=== PATIENT | male | born 2000 | race Caucasian/White ===

== ENCOUNTER 2020-06-27 11:45 | Outpatient (REF) | payer MEDICAID, SELFPAY | END 2020-06-27 11:46 | disposition home or self-care (01) | LOC: HO.LAB 11:45 | PROVIDERS: PCP Pediatrics; Visit Provider Internal Medicine | DX: Z20.828 Contact with and (suspected) exposure to other viral communicable diseases (principal) | CPT/HCPCS: C9803; U0003 ==

== ENCOUNTER 2020-07-09 15:29 | Outpatient (REF) | payer MEDICAID, SELFPAY | END 2020-07-09 15:30 | disposition home or self-care (01) | LOC: HO.LAB 15:29 | PROVIDERS: PCP Pediatrics; Visit Provider Internal Medicine | DX: Z20.828 Contact with and (suspected) exposure to other viral communicable diseases (principal) | CPT/HCPCS: C9803; U0003 ==

== ENCOUNTER 2022-03-10 22:45 | Emergency (ER) | payer MEDICAID, SELFPAY ==
[2022-03-10 22:56] VITALS: BP 136/76; PULSE 69; RESP 16; TEMP 36.3; O2SAT 97; BMI 32.7
--- NOTE | 2022-03-10 23:13 | ED.EAR ---
HPI - Ear Problem General Chief complaint: Ear Problems Stated complaint: ear pain Time Seen by Provider: 03/10/22 23:08 Source: patient Mode of arrival: ambulatory Limitations: no limitations History of Present Illness HPI Narrative: 21-year-old male presents to the ER with right-sided ear pain and hearing loss for the last 2 or 3 days. He reports significant pain deep inside of his right ear with muffled sounds. He has some intermittent ringing in his ear as well. He has not she swam in a few weeks because he has been really busy and working a lot. He denies any drainage from the ear. He has no complaints on the left side. He took a hot shower tonight that alleviated his symptoms briefly. He reports pain when he tries to lay on his right side. MD Complaint: ear pain and decreased hearing Location: right ear Duration: constant Severity: severe Relieving factors: nothing Exacerbating factors: chewing, position of head and palpation Discharge from ear: no Associated symptoms ear: decreased hearing, headache, external ear tenderness and ear swelling Treatment prior to arrival: none Related Data Previous Rx's Medication Instructions Recorded amoxicillin 875 mg-potassium 1 tab PO BID #14 tabs 03/10/22 clavulanate 125 mg tablet ciprofloxacin 0.3 %-dexamethasone 4 drp otic (ears) BID 7 days #7.5 03/10/22 0.1 % ear drops,suspension mL (Ciprodex) ibuprofen 600 mg tablet 600 mg PO Q8H PRN fever or pain 03/10/22 #14 tabs Allergies Allergy/AdvReac Type Severity Reaction Status Date / Time animal dander [PET DANDER] Allergy Unknown HIVES, RASH Unverified 04/11/20 17:00 SEASONAL ALLERGIES Allergy Mild UNKNOWN Uncoded 04/11/20 17:00 Review of Systems Review of Systems: Constitutional: No Fever, No Chills ENT/Mouth: No sore throat, No Rhinorrhea, No Swallowing Difficulty, +Otalgia, +Hearing loss Eyes: No Eye Pain, No Swelling, No Redness Cardiovascular: No Chest Pain, No SOB Respiratory: No Cough, No Sputuma Gastrointestinal: No Nausea, No Vomiting Skin: No Skin Lesions, No rash Neuro: No Weakness, No Numbness, No Dizziness, + Headache Psych: + Anxiety/Panic, No Depression Heme/Lymph: No Bruising, No Lymphadenopathy PMFSH Social History Social History Advance Directives: No Physical Exam Vital Signs: Vital Signs: Last Vital Signs Temp 97.3 F 03/10/22 22:56 Pulse 69 03/10/22 22:56 Resp 16 03/10/22 22:56 BP 136/76 03/10/22 22:56 Pulse Ox 97 03/10/22 22:56 O2 Del Method 03/10/22 22:56 BMI result Body Mass Index 32.7 Appearance: Alert. Oriented X3. No acute distress. HEENT: normal external inspection. normal left EAC & TM. Pain with pull of the right Pinna. Right EAC with moderate swelling and tenderness, small amount of yellow discharge. partially visualized TM with erythema and bulging. CVS: Normal heart rate and rhythm. Pulses normal. Respiratory: No respiratory distress. Skin: Skin warm and dry. Normal skin color. Normal skin turgor. No rashes. Extremities: normal inspection x4, normal ROM Neuro: Oriented X 3. No motor deficit. No sensory deficit. Course Course Course Narrative: 21-year-old male presents to the ER with right ear pain and decreased hearing for the last 3 days. His examination is consistent with acute otitis externa and otitis media. He will require treatment with both topical and oral antibiotics. Prescription sent to 24 hours [facility] and to copy. Patient will go pick then up now. He is stable for discharge home. Discharge Plan Discharge Clinical Impression: Otitis externa, Otitis media Patient Disposition: Home, Self-Care Instructions: Otitis Externa (ED), Ear Infection (ED) Additional Instructions: Starting in the prescribed antibiotics as directed, complete the entire course. Use the prescribed antibiotic drops as directed. Do not get water in your ear. When you shower put a cotton ball in your ear. If you develop new or worsening symptoms call 911 or come back to the ER for further evaluation. Prescriptions: New amoxicillin-pot clavulanate 875-125 mg tablet 1 tab PO BID Qty: 14 0RF ciprofloxacin-dexamethasone [Ciprodex] 0.3-0.1 % drops,suspension 4 drp otic (ears) BID 7 Days Qty: 7.5 0RF ibuprofen 600 mg tablet 600 mg PO Q8H PRN (Reason: fever or pain) Qty: 14 0RF
== END 2022-03-10 23:36 | disposition home or self-care (01) ==
PROVIDERS: Emergency Provider Internal Medicine
DX: H60.91 Unspecified otitis externa, right ear (principal); H66.91 Otitis media, unspecified, right ear; R51.9 Headache, unspecified; Z79.899 Other long term (current) drug therapy
CPT/HCPCS: 99283; 99284

== ENCOUNTER 2023-07-05 20:21 | Emergency (ER) | payer MEDICAID, SELFPAY ==
[2023-07-05 21:32] VITALS: BP 133/79; PULSE 79; RESP 18; TEMP 37.3; O2SAT 99; BMI 34.0
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
[2023-07-06] MEDS: Diphth,Pertus(ACell),Tet Adult 0.5 ML SYRINGE IM (00:29)
--- NOTE | 2023-07-06 00:35 | PC.NURSE ---
This RN medicated and discharge pt for RN Eun, reviewed discharge instructions with pt. pt verbalized understanding.
== END 2023-07-06 00:36 | disposition home or self-care (01) ==
PROVIDERS: Emergency Provider Emergency Medicine
DX: S81.812A Laceration without foreign body, left lower leg, initial encounter (principal); W27.8XXA Contact with other nonpowered hand tool, initial encounter; Y93.E6 Activity, residential relocation; Y92.9 Unspecified place or not applicable; Y99.9 Unspecified external cause status
CPT/HCPCS: 12001; 90471; 90715; 99282; 99284

== ENCOUNTER 2024-02-27 21:00 | Emergency (ER) | payer MEDICAID, SELFPAY ==
--- NOTE | ~2024-02-27 | XR_ITS ---
EXAMINATION: XR KNEE, RIGHT CLINICAL INFORMATION: Pain COMPARISON: None available. TECHNIQUE: Four views of the right knee. FINDINGS: Osseous alignment is anatomic. Joint spaces are maintained. No acute fracture is seen. No significant effusion. XR/XR knee RT 3V IMPRESSION: No acute findings identified.
[2024-02-27 21:06] VITALS: BP 128/78; PULSE 66; RESP 18; TEMP 36.8; O2SAT 97; BMI 36.7
--- NOTE | 2024-02-27 21:50 | ED.GENADULT ---
HPI - General Adult General Chief complaint: Extremity Injury, Lower Stated complaint: R knee pain/inj Time Seen by Provider: 02/27/24 21:49 Source: patient Mode of arrival: ambulatory Limitations: no limitations History of Present Illness ED Provider: Cammy Goode PA-C HPI narrative: Patient is a 23 year old assigned male at with no reported medical history presenting to the emergency department today with right upper leg pain. Patient states that on Wednesday he was doing leg extensions and squats, felt fine, but on Wednesday he began to have right upper leg pain. Patient states that the pain is right above his knee cap and worse with flexion of his right knee. Patient denies any dizziness, lightheadedness, abdominal pain, nausea, vomiting, fever, chills, blurry vision, double vision, loss of vision, chest pain, difficulty breathing, shortness of breath, back pain, night sweats, pain with urination, increased urinary frequency, increased urinary urgency, blood in his urine or stool, syncope or a near syncopal episode, bowel incontinence, bladder incontinence, or any other complaints at this time. Onset (ago): day(s) (1) Location: right and lower extremity Severity: moderate Severity scale (1-10): 6 Quality: aching Pain Consistency: constant Relieving factors: immobilization Exacerbating factors: movement Associated symptoms: denies other symptoms Treatments prior to arrival: none Related Data Previous Rx's ?Medication ?Instructions ?Recorded amoxicillin 875 mg-potassium 1 tab PO BID #14 tabs 03/10/22 clavulanate 125 mg tablet ciprofloxacin 0.3 %-dexamethasone 4 drp otic (ears) BID 7 days #7.5 03/10/22 0.1 % ear drops,suspension mL (Ciprodex) ibuprofen 600 mg tablet 600 mg PO Q8H PRN fever or pain 03/10/22 #14 tabs Allergies Allergy/AdvReac Type Severity Reaction Status Date / Time animal dander [PET DANDER] Allergy Unknown HIVES, RASH Verified 02/27/24 21:12 seafood Allergy Hives Verified 02/27/24 21:12 SEASONAL ALLERGIES Allergy Mild UNKNOWN Uncoded 07/05/23 21:32 Review of Systems Constitutional: Constitutional: Reports no additional constitutional complaints, Denies chills, Denies fever(s) and Denies night sweats Eyes: Eyes: Reports no additional eye complaints, Denies blurry vision, Denies change in vision, Denies diplopia, Denies eye discharge, Denies loss of vision and Denies eye pain ENT: Denies dizziness Cardiovascular: Cardiovascular: Reports no additional cardiovascular complaints, Denies chest pain, Denies lightheadedness, Denies Loss of Consciousness and Denies dyspnea Respiratory: Respiratory: Reports no additional respiratory complaints and Denies dyspnea Gastrointestinal: Gastrointestinal: Reports no additional gastrointestinal complaints, Denies abdominal pain, Denies melena, Denies hematochezia, Denies change in bowel habits and Denies change in stool character Genitourinary: Genitourinary: Reports no additional male genitourinary complaints, Denies hematuria, Denies oliguria, Denies difficulty urinating, Denies dysuria, Denies urinary frequency, Denies urinary hesitancy, Denies urinary incontinence and Denies urinary urgency Musculoskeletal: Musculoskeletal: Reports no additional musculoskeletal complaints, Denies numbness and Denies tingling Comments: right upper leg pain Neurologic: Denies dizziness, Denies loss of vision, Denies numbness and Denies tingling Psychiatric: Psychiatric: Reports no additional psychiatric complaints Endocrine: Endocrine: Reports no additional endocrine complaints Hematologic/Lymphatic: Hematologic/Lymphatic: Reports no additional hematologic/lymphatic complaints Allergic/Immunologic: Allergic/Immunologic: Reports no additional allergic/immunologic complaints PMFSH Past Medical History Attestation statement: The following information was validated with the patient. Source: old records reviewed and nursing notes reviewed Social History Social History Advance Directives: No Advance Directives Information Provided: No Do you have a plan to hurt others: No Plan Physical Exam ED Vital Signs: Vital Signs - 24 hr 02/27/24 21:06 02/27/24 22:00 02/27/24 23:37 Temperature 98.3 F 98.3 F 98.5 F Pulse Rate 66 59 80 Respiratory Rate 18 17 16 Blood Pressure 128/78 129/73 121/71 Pulse Oximetry 97 99 95 Oxygen Delivery Method Room Air Room Air Room Air BMI result Body Mass Index 36.7 Const General: cooperative, no acute distress, alert and awake Nutritional Appearance: well nourished Orientation/consciousness: patient oriented x3 Limitations: no limitations HENMT Head: Yes normal to inspection and Yes atraumatic Ears: hearing grossly normal bilaterally and external ears normal General nose exam: Normal external nose present, no nasal discharge noted and no epistaxis Face and sinus: Yes normal facial exam, No abrasion and No laceration Mouth: Normal oral and palatal mucosa present, no drooling and no muffled voice Eyes General: appearance normal, both eyes and all related structures Periorbital: periorbital findings normal Eyelids: Yes eyelids normal Conjunctivae: conjunctivae normal Pupils: Equal, round and reactive pupils present EOM: EOMs intact bilaterally Neck Neck: Yes normal visual inspection, Yes full ROM and Yes no lymphadenopathy Chest Chest palpation & inspection: normal inspection of the chest Resp Effort & Inspection: normal respiratory effort and able to speak in complete sentences GI Inspection: Yes normal to inspection Neuro General: patient oriented x3 and moves all extremities Cranial nerves: Yes Equal, round and reactive pupils present Cognition (Neuro): normal cognition Extrem Other: pain with palpation superior of the right knee patient able to extend right knee but has significant pain with flexion of the right knee - in the quad General: Yes normal to inspection and Yes capillary refill normal Psych Appearance: grossly normal Mental Status: mental status grossly normal Affect: normal affect Attitude: cooperative Thought process: Normal thought process present Thought content: Normal thought content present Insight: Good insight present (Psych) Medications Administered Discontinued Medications Generic Name Dose Route Start Last Admin Trade Name Dot PRN Reason Stop Dose Admin Ketorolac Tromethamine 15 mg 02/27/24 23:50 02/27/24 23:55 Ketorolac Tromethamine 15 Mg/Ml Vial IM 02/27/24 23:51 15 mg ONCE ONE Administration Procedures Orthopedic Splinting/Casting Injury #1: Side: right Lower Extremity Injury Location: upper leg Lower Extremity Immobilizer: knee immobilizer Other Orthopedic Equipment: crutches Medical Decision Making Medical Decision Making MDM Narrative: Patient is a 23 year old assigned male at with no reported medical history presenting to the emergency department today with right upper leg pain. Patient's physical exam was as noted in the physical exam portion of this note and most concerning for a right quad injury. Patient's right knee x-ray showed no acute process. I explained my physical exam findings as well as all test results to the patient. I answered all questions asked by the patient. Patient's right knee was placed in a knee immobilizer, without incident. Patient's PMS was intact prior to and after immobilizer placement. Patient's PMS was intact prior to and after immobilizer placement. Patient was given crutches with crutch instructions. I stressed the importance of the patient taking his medication as directed (either prescribed or as the over the counter packaging recommends). I stressed the importance of the patient following up with his primary care provider and an orthopedic provider. I stressed the importance of the patient returning to the emergency department immediately if his symptoms were to worsen or if he were to develop any dizziness, shortness of breath, difficulty breathing, chest pain, blurry vision, loss of vision, nausea, vomiting, abdominal pain, fever, chills, back pain, or any other complaints. Patient verbalized agreement and understanding with this treatment plan and discharge. Differential Diagnosis Differential Diagnoses: The differential diagnosis associated with the presentation includes Quad injury Quad strain Quad sprain Quad tear Admission/Observation Consideration of admission/observation: Escalation of care including admission/observation considered Patient would have been admitted to the hospital had his work up had any findings where hospital admission was appropriate and his clinical presentation warranted hospital admission. Independent Interpretation I performed an independent interpretation of an: Plain X-Ray Interpretation: My interpretation is in agreement with the radiologist's impression of this imaging study. EXAMINATION: XR KNEE, RIGHT CLINICAL INFORMATION: Pain COMPARISON: None available. TECHNIQUE: Four views of the right knee. FINDINGS: Osseous alignment is anatomic. Joint spaces are maintained. No acute fracture is seen. No significant effusion. XR/XR knee RT 3V IMPRESSION: No acute findings identified. Dictated By: Warren Cagle MD Signed By: Electronically signed by Warren Cagle MD 02/27/24 6068 Radiology Impression Discussion of test interpretation with radiology: I have reviewed the radiologist's reading. Discharge Plan Discharge Clinical Impression: Injury of quadriceps muscle Patient Disposition: Home, Self-Care Instructions: Knee Immobilizer (ED) Additional Instructions: Your x-ray showed no frank process. Your exam is concerning for a right quadriceps injury. Follow up with your primary care provider and an orthopedic provider. Use your knee immobilizer and remain non weight bearing until orthopedics clears you. Return to the emergency department immediately if your symptoms worsen or if you develop any dizziness, shortness of breath, difficulty breathing, chest pain, blurry vision, loss of vision, nausea, vomiting, abdominal pain, fever, chills, back pain, or any other complaints. Prescriptions: No Action amoxicillin-pot clavulanate 875-125 mg tablet 1 tab PO BID Qty: 14 0RF ciprofloxacin-dexamethasone [Ciprodex] 0.3-0.1 % drops,suspension 4 drp otic (ears) BID 7 Days Qty: 7.5 0RF ibuprofen 600 mg tablet 600 mg PO Q8H PRN (Reason: fever or pain) Qty: 14 0RF Referrals: [facility] Family Medicine [Provider Group] (Call to establish and follow up with a primary care provider. If you already have a primary care provider, please follow up with them.) [facility] Primary CarePankaj [Provider Group] [facility] Primary CareJavier [Provider Group] [facility] [Provider Group] (Call to establish and follow up with an orthopedic provider. ) Stand Alone Forms: Work/School Release Print Language: Australian
[2024-02-27 22:00] VITALS: BP 129/73; PULSE 59; RESP 17; TEMP 36.8; O2SAT 99
--- NOTE | 2024-02-27 22:16 | MHC.EDTECH ---
Addendum entered by Sarah Gomez 02/27/24 22:18: Spoke with RN Reid and relayed information regarding medications and that an ice pack was applied. Original Note: This tech entered room to obtain updated vital signs on patient. While talking with patient, he disclosed that his knee pain was returning and that around 1900 he took Motrin and proshred - which he states is a workout supplement for pain. This tech also supplied patient with a cold pack and towel and placed cold pack above patients right knee.
[2024-02-27 23:37] VITALS: BP 121/71; PULSE 80; RESP 16; TEMP 36.9; O2SAT 95
[2024-02-27] MEDS: Ketorolac Tromethamine 15 MG/ML VIAL IM (23:55)
[2024-02-28 00:36] VITALS: BP 121/71; PULSE 80; RESP 16; TEMP 36.9; O2SAT 95
== END 2024-02-28 00:38 | disposition home or self-care (01) ==
PROVIDERS: Emergency Provider Emergency Medicine Emergency Medical Services
DX: S86.811A Strain of other muscle(s) and tendon(s) at lower leg level, right leg, initial encounter (principal); M25.561 Pain in right knee; X50.9XXA Other and unspecified overexertion or strenuous movements or postures, initial encounter; Y93.B9 Activity, other involving muscle strengthening exercises; Y92.098 Other place in other non-institutional residence as the place of occurrence of the external cause; Y99.8 Other external cause status
CPT/HCPCS: 73562; 96372; 99283; 99284; J1885

== ENCOUNTER 2024-03-03 08:54 | Outpatient (AMB) | payer MEDICAID, SELFPAY ==
--- NOTE | 2024-03-03 09:06 | A.OFFVIS_ITS ---
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 Patient expresses he was working out on 02/25/24 doing leg extension exercises and quad extensions and felt fine after but the following day he began to have pain on the upper aspect of his right leg above his knee cap that worsens with flexion. On Wednesday02/27/24 he expresses he had excruciating pain which led him to go to the ED. He states his symptoms have since improved but his knee feels funny when he flexes it, he feels his knee is going to buckle. He was seen at [facility] ED on 02/27/24 where x-rays were done and advised him to use his knee immobilizer and remain non weight bearing until follow up with orthopedics. 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 The patient reports that, on this date, he was attempting to engage his right quadriceps to show case muscle growth for a workout partner, when he felt a small clicking sensation. The mikey thompson reports that, over the next day or so, he began to experience significant discomfort in the suprapatellar region of the right knee, as well as in the right thigh. He also reports that flexion of the right knee was very painful, to the point where active flexion was extremely difficult. The patient reports that, while in the ED, he was given a shot of Toradol, which helped significantly. Today, the patient reports that he is feeling better, but does still notice some discomfort in the suprapatellar region of the right knee and in the right thigh, along with swelling of the right thigh that only occurs in the morning, but improves quickly as he goes about his day. The patient reports that his range of motion has improved significantly, and he is now able to flex to 90 degrees without any difficulty. He also reports no difficulty with extension of the right knee. Of note, the patient also reports a ?strange sensation? that occasionally occurs in the right thigh, moving from the suprapatellar region of the knee up into the proximal thigh. The patient expresses concern about his ACL, as his family has been telling him that he may have torn it. 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 Pain: Patient reports no tenderness to palpation about the right knee or quad Patient reports no pain with range of motion testing ROM: Patient is able to extend the right knee fully without difficulty Patient is able to flex the right knee to 120 degrees without difficulty Skin: No lacerations or abrasions. General: No ecchymosis, erythema, or evidence of infection. No visible or palpable deformity of the quadriceps tendon Negative Graciela's Negative varus and valgus testing Negative anterior drawer Distal sensation intact Capillary refill brisk Psych: Appears grossly normal Affect normal Attitude cooperative Psych Appearance: grossly normal Mental Status: mental status grossly normal Results Reviewed Results Reviewed: X-rays obtained in the emergency department on 02/27/2024 and independently reviewed by me, Akhil Lobo PA-C, demonstrate no fracture or acute bony abnormality. Assessment & Plan Assessment & Plan (1) Strain of right quadriceps tendon: Code(s): S76.111A - Strain of right quadriceps muscle, fascia and tendon, initial encounter Category: Medical Plan 1. Right quadriceps tendon strain Date of injury 02/25/2024 Low index of suspicion for right quad tendon tear, as patient is able to extend right knee fully without difficulty and there is no palpable deformity Patient is informed that he has a negative anterior drawer test, as well as a history that is not suggestive of ACL injury, therefore the index of suspicion for an ACL tear is also very low Patient is told that he no longer has to wear a knee immobilizer Patient is informed that he likely sprained or strained the right quadriceps tendon, and this injury and recovery course was explained to the patient Patient is referred to physical therapy for range of motion, strengthening and stabilization of the right knee 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 with any acute concerns Orders: Orders PT Evaluation and Treatment Today S76.111A - Strain of right quadriceps muscle, fascia and tendon, initial encounter Medications: Discontinued amoxicillin-pot clavulanate 875-125 mg Discontinued Reason: Patient no longer taking 1 tab PO BID 14 tabs 0RF ciprofloxacin-dexamethasone 0.3-0.1 % (Ciprodex) Discontinued Reason: Patient no longer taking 4 drps otic (ears) BID 7 days 7.5 mL 0RF Coding Level of Care Code New Pt Level 3 (87498) Diagnoses Strain of right quadriceps tendon S76.111A
[2024-03-03 09:07] VITALS: BMI 36.2
== END 2024-03-03 09:30 | disposition home or self-care (01) ==
DX: S76.111D Strain of right quadriceps muscle, fascia and tendon, subsequent encounter (principal)
CPT/HCPCS: 99203

== ENCOUNTER → 2024-03-03 08:54 | Outpatient (BNVA) | payer MEDICAID, SELFPAY | DX: S76.111A Strain of right quadriceps muscle, fascia and tendon, initial encounter (principal); X58.XXXA Exposure to other specified factors, initial encounter; Y93.89 Activity, other specified; Y92.89 Other specified places as the place of occurrence of the external cause; Y99.9 Unspecified external cause status | CPT/HCPCS: 99212 ==

== ENCOUNTER 2024-08-14 01:17 | Emergency (ER) | payer MEDICAID, SELFPAY ==
[2024-08-14 01:21] VITALS: BP 122/84; PULSE 109; O2SAT 97
[2024-08-14 01:35] VITALS: BP 145/72; PULSE 98; RESP 16; TEMP 36.8; O2SAT 98; BMI 36.3
[2024-08-14 02:00] LABS: Basophils Percent Auto 0.1 % (0-2); Eosinophils Percent Auto 0.1 % (0-4); Hematocrit 47.4 % (42.0-52.0); Hemoglobin 16.3 g/dl (14.0-18.0); Imm Gran Abs Auto 0.04 X10*3/uL (0.00-0.03); Imm Gran Pct Auto 0.3 % (0.0-0.4); Lymphocytes Absolute Auto 0.4 X10*3/uL (1.2-4.9); Lymphocytes Percent Auto 2.5 % (20-40); MANUAL DIFF FLAG SCAN; Mean Corpuscular HGB Conc 34.4 g/dl (31.0-36.0); Mean Corpuscular Hemoglobin 30.5 pg (27.0-33.0); Mean Corpuscular Volume 88.8 fL (80.0-98.0); Mean Platelet Volume 9.3 fL (9.4-12.4); Monocytes Absolute Auto 0.4 X10*3/uL (0.1-1.2); Monocytes Percent Auto 2.8 % (2-11); Neutrophils Absolute Auto 13.3 x10*3/uL (2.0-8.3); Neutrophils Percent Auto 94.2 % (45-73); Platelet Count 280 X10*3/uL (160-400); Red Blood Count 5.34 X10*6/uL (4.60-5.80); Red Cell Distribution Width 12.9 % (11.0-16.0); SCAN SMEAR FLAG 1; White Blood Count 14.1 X10*3/uL (4.8-10.8)
[2024-08-14] MEDS: 0.9 % Sodium Chloride 1,000 ML 999 ML IVCONT (02:13)
[2024-08-14] MEDS: Loperamide HCl 2 MG CAPSULE 4 MG PO (02:14)
[2024-08-14] MEDS: ondansetron HCL 4 MG/2 ML VIAL IVPUSH (02:14)
--- NOTE | 2024-08-14 02:21 | PC.NURSE ---
Iv placed, medicated per sep, pt is resting on stretcher at his time.
[2024-08-14 02:22] LABS: Alanine Aminotransferase 35 U/L (0-40); Albumin Level 4.7 g/dL (3.5-5.0); Alkaline Phosphatase 84 U/L (39-117); Anion Gap 16 (12-20); Aspartate Amino Transferase 33 U/L (5-37); Bilirubin Direct 0.2 mg/dL (0.0-0.5); Bilirubin Total 0.7 mg/dL (0.0-1.0); Blood Urea Nitrogen 14 mg/dL (9-16); Calcium 10.1 mg/dL (8.4-10.2); Carbon Dioxide 23 mmol/L (22-29); Chloride 107 mmol/L (96-108); Creatinine Clr Calc Pharmacy 118.2; Estimated Glomerular Filt Rate > 60; Glucose Random 136 mg/dL (60-115); Lipase 39 U/L (8-78); Potassium 4.6 mmol/L (3.3-5.1); Sodium 141 mmol/L (135-145); Total Protein 8.3 g/dL (6.5-8.0)
--- NOTE | 2024-08-14 02:23 | ED_ITS ---
HPI - Nausea/Vomiting/Diarrhea General Chief complaint: Nausea/Vomiting/Diarrhea Stated complaint: n/v/d x6 hrs, ab pain and dehydrated Time Seen by Provider: 08/14/24 01:23 Source: patient Mode of arrival: ambulatory Limitations: no limitations History of Present Illness ED Provider: Dr. Nazia Lui HPI Narrative: Patient comes to the emergency room complaining of nausea and vomiting for 6 hours, no diarrhea, mild abdominal cramping. Patient denies fever or chills. Patient denies any other symptoms Related Data Previous Rx's ?Medication ?Instructions ?Recorded ibuprofen 600 mg tablet 600 mg PO Q8H PRN fever or pain 03/10/22 #14 tabs ondansetron 4 mg disintegrating 4 mg PO Q8H PRN nausea and 08/14/24 tablet vomiting #14 tabs Allergies Allergy/AdvReac Type Severity Reaction Status Date / Time animal dander [PET DANDER] Allergy Unknown HIVES, RASH Verified 08/14/24 01:37 seafood Allergy Hives Verified 08/14/24 01:37 SEASONAL ALLERGIES Allergy Mild UNKNOWN Uncoded 03/03/24 09:07 Review of Systems 2 Review of Systems: Constitutional : No Weight loss, No Fever, No Chills, No Night Sweats, No Fatigue, No Malaise ENT/Mouth : No Hearing loss, No Ear Pain, No Nasal Congestion, No Sinus Pain, No Hoarseness, No sore throat, No Rhinorrhea, No Swallowing Difficulty Eyes: No Eye Pain, No Swelling, No Redness, No Foreign Body, No Discharge, No Vision Changes Cardiovascular : No Chest Pain, No SOB, No Dyspnea on Exertion, No Orthopnea, No Edema, No Palpitations Respiratory : No Cough, No Sputum, No Wheezing, No Smoke Exposure, No Dyspnea Gastrointestinal : Complaining of nausea and vomiting, No Diarrhea, No Constipation, No abdominal Pain, No Hematochezia, No Melena Genitourinary : no irregular bleeding, No Dysuria, No Urinary Frequency, No Hematuria, No Urinary Incontinence, No Urgency, No Flank Pain, No Urinary Flow Changes, No Hesitancy Musculoskeletal : No joint pain, No Myalgias, No Joint Swelling Skin : No Skin Lesions, No rash Neuro : No Weakness, No Numbness, No Paresthesias, No Loss of Consciousness, No Dizziness, No Headache Psych : No Anxiety/Panic, No Depression, No SI/HI/AH/VH, No Social Issues, Heme/Lymph: No Bruising, No Bleeding,No Lymphadenopathy Endocrine : No Polyuria, No Polydipsia, No Temperature Intolerance [facility] Social History Social History Alcohol intake: former Patient Tobacco Use Status: Never used Tobacco Advance Directives: No Advance Directives Information Provided: Yes Do you have a plan to hurt others: No Plan Current occupational status: employed 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 Oriented X3. No acute distress. Eyes: Pupils equal, round and reactive to light. ENT: Pharynx normal. Neck: Normal inspection. Neck supple. No lymph nodes noted. No crepitus CVS: Normal heart rate and rhythm. Pulses normal. Normal S1 and S2 Respiratory: No respiratory distress. Breath sounds normal. No Wheezing. No rales Abdomen: Soft and nontender. No rigidity. No distention. Skin: Skin warm and dry. Normal skin color. Normal skin turgor. Extremities: No lower extremity edema. No Lacerations. No Rash Neuro: Oriented X 3. No motor deficit. No sensory deficit. Moving all extremities. No slurred speech. CN 2 through 12 grossly intact Psych: calm, cooperative, normal affect Course Course Course Narrative: Patient receiving IV fluids, Zofran. Abdominal exam is reassuring, no abdominal pain on palpation. Medications Administered Generic Name Dose Route Start Last Admin Trade Name Freq PRN Reason Stop Dose Admin Sodium Chloride 1,000 mls @ 999 mls/hr 08/14/24 01:33 08/14/24 02:13 Ns IVCONT 08/14/24 02:33 999 mls/hr .Q1H1M ONE Administration Discontinued Medications Generic Name Dose Route Start Last Admin Trade Name Freq PRN Reason Stop Dose Admin Loperamide HCl 4 mg 08/14/24 01:33 08/14/24 02:14 Loperamide Hcl 2 Mg Capsule PO 08/14/24 01:34 4 mg ONCE ONE Administration Ondansetron HCl 4 mg 08/14/24 01:33 08/14/24 02:14 Ondansetron Hcl 4 Mg/2 Ml Vial IVPUSH 08/14/24 01:34 4 mg ONCE ONE Administration Medical Decision Making Medical Decision Making [facility] Narrative: My interpretation of labs: Patient's white blood cell count 14, likely reactive leukocytosis. Normal chemistry, LFTs and lipase. Physical exam reassuring CT scan was considered but patient's physical exam was relatively normal including abdominal physical exam Differential Diagnosis Differential Diagnoses: The differential diagnosis associated with the presentation includes (Viral illness, gastritis, gastroenteritis) Lab Data [facility] Lab Attestation statement: I reviewed the patient's lab results. 08/14/24 01:53 08/14/24 01:53 Labs: Lab Results 08/14/24 Range/Units 01:53 WBC 14.1 H (4.8-10.8) X10*3/uL RBC 5.34 (4.60-5.80) X10*6/uL Hgb 16.3 (14.0-18.0) g/dl Hct 47.4 (42.0-52.0) % MCV 88.8 (80.0-98.0) fL MCH 30.5 (27.0-33.0) pg MCHC 34.4 (31.0-36.0) g/dl RDW 12.9 (11.0-16.0) % Plt Count 280 (160-400) X10*3/uL MPV 9.3 L (9.4-12.4) fL Sodium 141 (135-145) mmol/L Potassium 4.6 (3.3-5.1) mmol/L Chloride 107 (96-108) mmol/L Carbon Dioxide 23 (22-29) mmol/L Anion Gap 16 (12-20) BUN 14 (9-16) mg/dL Creatinine 1.14 (0.5-1.4) mg/dL Estim Creat Clear Calc 118.2 Estimated GFR > 60 Random Glucose 136 H (60-115) mg/dL Calcium 10.1 (8.4-10.2) mg/dL Total Bilirubin 0.7 (0.0-1.0) mg/dL Direct Bilirubin 0.2 (0.0-0.5) mg/dL AST 33 (5-37) U/L ALT 35 (0-40) U/L Alkaline Phosphatase 84 (39-117) U/L Total Protein 8.3 H (6.5-8.0) g/dL Albumin 4.7 (3.5-5.0) g/dL Lipase 39 (8-78) U/L Discharge Plan Discharge Clinical Impression: Nausea & vomiting, Dehydration Patient Disposition: Home, Self-Care Instructions: Dehydration (ED), Acute Nausea and Vomiting (ED) Additional Instructions: Please follow-up with your primary care physician tomorrow. If you have any worsening or new symptoms, please return to the emergency room or call 911 Prescriptions: New ondansetron 4 mg tablet,disintegrating 4 mg PO Q8H PRN (Reason: nausea and vomiting) Qty: 14 0RF No Action ibuprofen 600 mg tablet 600 mg PO Q8H PRN (Reason: fever or pain) Qty: 14 0RF Stand Alone Forms: Work/School Release Print Language: Estonian
[2024-08-14 02:57] LABS: SLIDE REVIEW VERIFIED
[2024-08-14 03:11] VITALS: BP 117/52; PULSE 76; RESP 16; TEMP 37.1; O2SAT 98
--- NOTE | 2024-08-14 03:24 | PC.NURSE ---
Reviewed discharge instructions with pt. pt verbalized understanding, no sign of distress upon discharge.
[2024-08-14 03:38] VITALS: BP 117/52; PULSE 76; RESP 16; TEMP 37.1; O2SAT 98
== END 2024-08-14 03:38 | disposition home or self-care (01) ==
PROVIDERS: Emergency Provider Emergency Medicine
DX: R11.2 Nausea with vomiting, unspecified (principal); E86.0 Dehydration
CPT/HCPCS: 36415; 80048; 80076; 83690; 85025; 96361; 96374; 99284; J2405

== ENCOUNTER 2025-01-04 22:31 | Emergency (ER) | payer MEDICAID, SELFPAY ==
--- NOTE | 2025-01-04 | ECG_ITS ---
Test Reason : CP Blood Pressure : */* mmHG Vent. Rate : 61 BPM Atrial Rate : 61 BPM P-R Int : 172 ms QRS Dur : 94 ms QT Int : 364 ms P-R-T Axes : 31 4 4 degrees QTcB Int : 366 ms Normal sinus rhythm Normal ECG When compared with ECG of 09-Sep-2013 15:09, PREVIOUS ECG IS PRESENT Referred By: Generic ED Physician Electronically Signed By: ROSY LLANES MD
[2025-01-04 22:44] VITALS: BP 112/72; PULSE 64; RESP 17; TEMP 37.1; O2SAT 98; BMI 35.1
[2025-01-04 22:48] LABS: MANUAL DIFF FLAG NO
[2025-01-04 22:49] LABS: Basophils Percent Auto 0.2 % (0-2); Eosinophils Absolute Auto 0.2 X10*3/uL (0.0-0.4); Eosinophils Percent Auto 1.9 % (0-4); Hematocrit 41.3 % (42.0-52.0); Hemoglobin 14.2 g/dl (14.0-18.0); Imm Gran Abs Auto 0.02 X10*3/uL (0.00-0.03); Imm Gran Pct Auto 0.2 % (0.0-0.4); Lymphocytes Absolute Auto 3.1 X10*3/uL (1.2-4.9); Lymphocytes Percent Auto 34.3 % (20-40); Mean Corpuscular HGB Conc 34.4 g/dl (31.0-36.0); Mean Corpuscular Hemoglobin 30.3 pg (27.0-33.0); Mean Corpuscular Volume 88.2 fL (80.0-98.0); Mean Platelet Volume 9.3 fL (9.4-12.4); Monocytes Absolute Auto 0.8 X10*3/uL (0.1-1.2); Monocytes Percent Auto 9.3 % (2-11); Neutrophils Absolute Auto 4.9 x10*3/uL (2.0-8.3); Neutrophils Percent Auto 54.1 % (45-73); Platelet Count 269 X10*3/uL (160-400); Red Blood Count 4.68 X10*6/uL (4.60-5.80); Red Cell Distribution Width 13.1 % (11.0-16.0)
[2025-01-04 23:02] LABS: Alanine Aminotransferase 47 U/L (0-40); Albumin Level 4.5 g/dL (3.5-5.0); Alkaline Phosphatase 80 U/L (39-117); Anion Gap 11 (12-20); Aspartate Amino Transferase 35 U/L (5-37); Bilirubin Total 0.2 mg/dL (0.0-1.0); Blood Urea Nitrogen 24 mg/dL (9-16); Calcium 9.3 mg/dL (8.4-10.2); Carbon Dioxide 23 mmol/L (22-29); Chloride 110 mmol/L (96-108); Creatinine Clr Calc Pharmacy 125.3; Estimated Glomerular Filt Rate > 60; Glucose Random 97 mg/dL (60-115); Potassium 4.1 mmol/L (3.3-5.1); Sodium 140 mmol/L (135-145); Total Protein 7.4 g/dL (6.5-8.0)
[2025-01-04 23:06] VITALS: BP 118/68; PULSE 66; RESP 18; TEMP 36.8; O2SAT 98
[2025-01-04 23:10] LABS: Troponin-I High Sensitivity < 2.7 ng/L (<3.5-35.0)
--- NOTE | 2025-01-04 23:19 | ED.CHESTPAIN ---
HPI - Chest Pain General Chief Complaint: Chest Pain Stated Complaint: chest pain Time Seen by Provider: 01/04/25 23:00 Source: patient Mode of arrival: ambulatory Limitations: no limitations History of Present Illness ED Provider: Dr. Nazia Lui HPI narrative: Patient comes to the emergency room complaining of 3 weeks of intermittent left-sided chest pain. Patient denies any shortness of breath, no nausea vomiting. No URI symptoms. Admits that he goes to the gym and bench presses a lot of weight. However, bench pressing a heavy weight is not new for him. At this time, patient states that he has no chest pain. Patient states that every so often he feels like a sharp sensation that comes and goes. Related Data Previous Rx's ?Medication ?Instructions ?Recorded ibuprofen 600 mg tablet 600 mg PO Q8H PRN fever or pain 03/10/22 #14 tabs ondansetron 4 mg disintegrating 4 mg PO Q8H PRN nausea and 08/14/24 tablet vomiting #14 tabs Allergies Allergy/AdvReac Type Severity Reaction Status Date / Time animal dander [PET DANDER] Allergy Unknown HIVES, RASH Verified 01/04/25 22:46 seafood Allergy Hives Verified 01/04/25 22:46 SEASONAL ALLERGIES Allergy Mild UNKNOWN Uncoded 01/04/25 22:46 Review of Systems Review of Systems: Constitutional : No Weight loss, No Fever, No Chills, No Night Sweats, No Fatigue, No Malaise ENT/Mouth : No Hearing loss, No Ear Pain, No Nasal Congestion, No Sinus Pain, No Hoarseness, No sore throat, No Rhinorrhea, No Swallowing Difficulty Eyes: No Eye Pain, No Swelling, No Redness, No Foreign Body, No Discharge, No Vision Changes Cardiovascular : Complaining of 3 weeks of sharp intermittent chest pain, No SOB, No Dyspnea on Exertion, No Orthopnea, No Edema, No Palpitations Respiratory : No Cough, No Sputum, No Wheezing, No Smoke Exposure, No Dyspnea Gastrointestinal : No Nausea, No Vomiting, No Diarrhea, No Constipation, No abdominal Pain, No Hematochezia, No Melena Genitourinary : no irregular bleeding, No Dysuria, No Urinary Frequency, No Hematuria, No Urinary Incontinence, No Urgency, No Flank Pain, No Urinary Flow Changes, No Hesitancy Musculoskeletal : No joint pain, No Myalgias, No Joint Swelling Skin : No Skin Lesions, No rash Neuro : No Weakness, No Numbness, No Paresthesias, No Loss of Consciousness, No Dizziness, No Headache Psych : No Anxiety/Panic, No Depression, No SI/HI/AH/VH, No Social Issues, Heme/Lymph: No Bruising, No Bleeding,No Lymphadenopathy Endocrine : No Polyuria, No Polydipsia, No Temperature Intolerance [facility] Social History Social History Alcohol intake: never Patient Tobacco Use Status: Never used Tobacco Smoked in Last 30 Days: No Use of substances other than those prescribed or required for medical reasons: No Advance Directives: No Do you have a plan to hurt others: No Plan Current occupational status: employed 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 Oriented X3. No acute distress. Eyes: Pupils equal, round and reactive to light. ENT: Pharynx normal. Neck: Normal inspection. Neck supple. No lymph nodes noted. No crepitus CVS: Normal heart rate and rhythm. Pulses normal. Normal S1 and S2 Respiratory: No respiratory distress. Breath sounds normal. No Wheezing. No rales Abdomen: Soft and nontender. No rigidity. No distention. Skin: Skin warm and dry. Normal skin color. Normal skin turgor. Extremities: No lower extremity edema. No Lacerations. No Rash Neuro: Oriented X 3. No motor deficit. No sensory deficit. Moving all extremities. No slurred speech. CN 2 through 12 grossly intact Psych: calm, cooperative, slightly anxious Medical Decision Making Medical Decision Making [facility] Narrative: My interpretation of EKG: Normal sinus rhythm, heart rate 61, no ST segment depressions, nonspecific T-wave inversion in lead 3, QTC 366 My interpretation of labs: No significant abnormality in patient's hematology and chemistry, troponin negative I discussed with the patient that it is likely that he may be experiencing muscle spasms. Patient has been having chest pain for over 3 weeks, by now, troponin will be positive. Also, the description of the pain is not classic for ACS Differential Diagnosis Differential Diagnoses: The differential diagnosis associated with the presentation includes (Chest wall pain, musculoskeletal pain, spasms) Lab Data [facility] Lab Attestation statement: I reviewed the patient's lab results. 01/04/25 22:43 01/04/25 22:43 Labs: Lab Results 01/04/25 Range/Units 22:43 WBC 9.0 (4.8-10.8) X10*3/uL RBC 4.68 (4.60-5.80) X10*6/uL Hgb 14.2 (14.0-18.0) g/dl Hct 41.3 L (42.0-52.0) % MCV 88.2 (80.0-98.0) fL MCH 30.3 (27.0-33.0) pg MCHC 34.4 (31.0-36.0) g/dl RDW 13.1 (11.0-16.0) % Plt Count 269 (160-400) X10*3/uL MPV 9.3 L (9.4-12.4) fL Immature Gran % (Auto) 0.2 (0.0-0.4) % Neut % (Auto) 54.1 (45-73) % Lymph % (Auto) 34.3 (20-40) % [place] % (Auto) 9.3 (2-11) % Eos % (Auto) 1.9 (0-4) % Baso % (Auto) 0.2 (0-2) % Lymph # (Auto) 3.1 (1.2-4.9) X10*3/uL [place] # (Auto) 0.8 (0.1-1.2) X10*3/uL Eos # (Auto) 0.2 (0.0-0.4) X10*3/uL Baso # (Auto) 0.0 (0.0-0.2) X10*3/uL Abs Immat Gran (auto) 0.02 (0.00-0.03) X10*3/uL Absolute Neuts (auto) 4.9 (2.0-8.3) x10*3/uL Absolute Nucleated RBC 0.000 (0.0-0.012) X10*3/uL Nucleated RBC % (auto) 0.0 (0.0-0.2) /100WBC Sodium 140 (135-145) mmol/L Potassium 4.1 (3.3-5.1) mmol/L Chloride 110 H (96-108) mmol/L Carbon Dioxide 23 (22-29) mmol/L Anion Gap 11 L (12-20) BUN 24 H (9-16) mg/dL Creatinine 1.09 (0.5-1.4) mg/dL Estim Creat Clear Calc 125.3 Estimated GFR > 60 Random Glucose 97 (60-115) mg/dL Calcium 9.3 D (8.4-10.2) mg/dL Total Bilirubin 0.2 (0.0-1.0) mg/dL AST 35 (5-37) U/L ALT 47 H (0-40) U/L Alkaline Phosphatase 80 (39-117) U/L Troponin I High Sens < 2.7 (<3.5-35.0) ng/L Total Protein 7.4 (6.5-8.0) g/dL Albumin 4.5 (3.5-5.0) g/dL Discharge Plan Discharge Clinical Impression: Atypical chest pain Patient Disposition: Home, Self-Care Instructions: Chest Wall Pain (ED), Noncardiac Chest Pain (ED) Additional Instructions: Please follow-up with your primary care physician tomorrow. If you have any worsening or new symptoms, please return to the emergency room or call 911 Prescriptions: No Action ibuprofen 600 mg tablet 600 mg PO Q8H PRN (Reason: fever or pain) Qty: 14 0RF ondansetron 4 mg tablet,disintegrating 4 mg PO Q8H PRN (Reason: nausea and vomiting) Qty: 14 0RF Print Language: Romansh
[2025-01-04 23:32] VITALS: BP 118/68; PULSE 73; RESP 16; TEMP 36.9; O2SAT 97
[2025-01-04 23:44] VITALS: BP 118/68; PULSE 73; RESP 16; TEMP 36.9; O2SAT 97
== END 2025-01-04 23:45 | disposition home or self-care (01) ==
PROVIDERS: Emergency Provider Emergency Medicine
DX: R07.89 Other chest pain (principal); Z79.899 Other long term (current) drug therapy
CPT/HCPCS: 36415; 80053; 84484; 85025; 93005; 99283; 99285

== ENCOUNTER → 2025-01-04 22:34 | Outpatient (BNV) | payer MEDICAID, SELFPAY | PROVIDERS: Emergency Provider Emergency Medicine; Visit Provider Internal Medicine Cardiovascular Disease | DX: R07.9 Chest pain, unspecified (principal) | CPT/HCPCS: 93010 ==